=== PATIENT | female | born 1990 | race Caucasian/White ===

== ENCOUNTER 2017-09-21 20:47 | Emergency (ER) | payer BC ==
[~2017-09-21] VITALS: Ht 180.3 cm; Wt 90.9 kg
[~2017-09-21 20:47] MED LIST: AMOXICILLIN 8751 TAB PO; BCP TD; CEPHALEXIN500 M1 PO; LEVAQUIN 5500 MG/TA1 PO; MICROGESTIN 1/21 TAB PO; PREDNISONE20 MG PO; PROAIR HFA0.09 MG/AC IH; SINGULAIR 110 MG/TAB PO; ULTRAM50 MG PO
[2017-09-21 20:54] VITALS: BP 189/81; TEMP 99
[2017-09-21] MEDS ORDERED: ENSKYCE 0.15 MG1 TAB (20:58)
[2017-09-21] MEDS ORDERED: BENADRYL25 M2 PO (21:08)
[2017-09-21] MEDS ORDERED: PEPCID 20MG TAB20 MG PO (22:22)
[2017-09-21] MEDS ORDERED: PREDNISONE20 MG PO (22:22)
[2017-09-21 22:50] VITALS: PULSE 87
== END 2017-09-21 22:53 | disposition home or self-care (01) ==
LOC: COL.ER 20:47
DX: J39.2 Other diseases of pharynx (principal)
CPT/HCPCS: J7512

== ENCOUNTER 2018-03-15 12:47 | Emergency (ER) | payer BC ==
[~2018-03-15] VITALS: Ht 180.3 cm; Wt 93.5 kg
[~2018-03-15 12:47] MED LIST changes: +BENADRYL25 M2 PO; +ENSKYCE 0.15 MG1 TAB; +PEPCID 20MG TAB20 MG PO
[2018-03-15 12:55] VITALS: TEMP 99.4
[2018-03-15 13:39] LABS: BASO # 0.1 (0.0-0.2); BASO % 0.9 % (0.0-2.0); EOS # 0.2 (0.0-0.7); GRAN % 58.2 % (42.2-75.2); HEMATOCRIT 43.1 % (37.0-47.0); HEMOGLOBIN 15.6 g/dl (12.5-16.0); LYMPH # 3.2 (1.2-3.4); LYMPH % 31.3 % (20.0-51.0); MEAN CELL VOLUME 83 fl (80.0-100.0); MEAN CORPUSCULAR HEMOGLOBIN 30 pg (27.0-31.0); MEAN CORPUSCULAR HGB CONC 36 g/dl (33.0-37.0); MONO # 0.8 (0.1-0.6); MONO % 7.5 % (1.7-9.3); PLATELET COUNT 374 K/mm3 (130-400); REDCELL DISTRIBUTION WIDTH-CV 11.8 % (11.5-14.5)
[2018-03-15 13:44] LABS: ALBUMIN 4.3 gm/dL (3.5-5.0); BILIRUBIN,TOTAL 0.6 mg/dL (0.0-1.0); C-REACTIVE PROTEIN 1.7 mg/dL (0.0-0.9); CALCIUM 9.7 mg/dL (8.4-10.2); CREATININE, serum 0.77 mg/dL (0.52-1.25); POTASSIUM 3.7 mmol/L (3.4-5.0); TOTAL PROTEIN 7.6 gm/dL (6.4-8.2)
[2018-03-15 14:55] LABS: COLLECTION METHOD CLEAN CATCH
[2018-03-15 15:09] LABS: PH 6 (5-8); URINE APPEARANCE Clear; URINE BACTERIA Rare /hpf; URINE BILIRUBIN Negative (NEGATIVE); URINE BLOOD Negative (NEGATIVE); URINE COLOR Yellow; URINE GLUCOSE Negative (NEGATIVE); URINE KETONE Negative (NEGATIVE); URINE LEUKOCYTE ESTERASE 2+ (NEGATIVE); URINE NITRATE Negative (NEGATIVE); URINE PROTEIN(semi-quant) Negative (NEGATIVE); URINE RBC 0-2 /hpf; URINE UROBILINOGEN Negative (NEGATIVE)
[2018-03-15] MEDS ORDERED: CEPHALEXIN500 M1 PO (15:23)
[2018-03-15] MEDS ORDERED: PREDNISONE20 MG PO (15:23)
[2018-03-15 18:32] VITALS: BP 118/71; PULSE 85
== END 2018-03-15 18:34 | disposition home or self-care (01) ==
LOC: COL.ER 12:47
PROVIDERS: Emergency Medicine; Physician Assistant
DX: T50.905A Adverse effect of unspecified drugs, medicaments and biological substances, initial encounter (principal); N39.0 Urinary tract infection, site not specified
CPT/HCPCS: J1200; J2060; J7030

== ENCOUNTER 2018-05-09 08:16 | Emergency (ER) | payer BC ==
[~2018-05-09] VITALS: Ht 180.3 cm; Wt 95.5 kg
[2018-05-09 08:20] VITALS: TEMP 98.1
[2018-05-09] MEDS ORDERED: PROBIOTIC FORMU1 CAP PO (08:34)
[2018-05-09] MEDS ORDERED: PREDNISONE20 MG PO (09:24)
[2018-05-09 09:29] VITALS: BP 126/76; PULSE 86
== END 2018-05-09 09:30 | disposition home or self-care (01) ==
LOC: COL.ER 08:16
DX: R20.2 Paresthesia of skin (principal); T78.1XXA Other adverse food reactions, not elsewhere classified, initial encounter; J45.909 Unspecified asthma, uncomplicated; Z98.890 Other specified postprocedural states; Z88.1 Allergy status to other antibiotic agents
CPT/HCPCS: J7512

== ENCOUNTER 2021-09-15 14:30 | Emergency (ER) | payer BC ==
[~2021-09-15] VITALS: Ht 180.3 cm; Wt 90.9 kg
[~2021-09-15 14:30] MED LIST changes: +PROBIOTIC FORMU1 CAP PO
[2021-09-15 15:55] LABS: COLLECTION METHOD CLEAN CATCH
[2021-09-15 16:00] LABS: BASO # 0.1 K/mm3 (0.0-0.2); BASO % 0.5 % (0.0-2.0); EOS # 0.1 K/mm3 (0.0-0.7); EOS % 0.8 % (0.0-4.0); GRAN # 14.1 K/mm3 (1.4-6.5); GRAN % 82.4 % (42.2-75.2); HEMATOCRIT 42.6 % (37.0-47.0); HEMOGLOBIN 15.1 g/dl (12.5-16.0); LYMPH # 1.8 K/mm3 (1.2-3.4); LYMPH % 10.7 % (20.0-51.0); MEAN CELL VOLUME 84 fl (80.0-100.0); MEAN CORPUSCULAR HEMOGLOBIN 30 pg (27-31); MEAN CORPUSCULAR HGB CONC 35 g/dl (33.0-37.0); MEAN PLATELET VOLUME 9.6 fl (7.4-10.4); MONO # 0.9 K/mm3 (0.1-0.6); MONO % 5.2 % (1.7-9.3); PLATELET COUNT 392 K/mm3 (130-400); RED BLOOD COUNT 5.05 M/mm3 (4.10-5.30); REDCELL DISTRIBUTION WIDTH-CV 12.3 % (11.5-14.5)
[2021-09-15 16:17] LABS: PH 5 (5-8); SQUAMOUS EPITHELIAL 0-2 /hpf (0-10); URINE APPEARANCE Hazy (CLEAR/HAZY); URINE BACTERIA None Seen /hpf (NONE SEEN); URINE BILIRUBIN Negative (NEGATIVE); URINE BLOOD 2+ (NEGATIVE); URINE COLOR Yellow (YELLOW); URINE GLUCOSE Negative (NEGATIVE); URINE KETONE Negative (NEGATIVE); URINE LEUKOCYTE ESTERASE 1+ (NEGATIVE); URINE NITRATE Negative (NEGATIVE); URINE PROTEIN(semi-quant) Negative (NEGATIVE); URINE UROBILINOGEN Negative (NEGATIVE)
[2021-09-15 16:18] LABS: ALBUMIN 4.2 gm/dL (3.5-5.0); BILIRUBIN,TOTAL 0.5 mg/dL (0.2-1.2); CALCIUM 9.8 mg/dL (8.4-10.2); CREATININE, serum 0.92 mg/dL (0.57-1.11); POTASSIUM 4.3 mmol/L (3.5-4.5); TOTAL PROTEIN 7.5 gm/dL (6.2-8.1)
[2021-09-15 16:31] LABS: TRICYCLIC ANTIDEPRESS URINE NEGATIVE
[2021-09-15] MEDS ORDERED: ZOFRAN ODT4 MG PO (17:07)
[2021-09-15] MEDS ORDERED: CEFTIN500 MG PO (17:07)
[2021-09-15 18:13] VITALS: BP 128/70; PULSE 81; TEMP 98.2
== END 2021-09-15 17:40 | disposition home or self-care (01) ==
LOC: COL.ER 14:30
PROVIDERS: Physician Assistant
DX: F07.81 Postconcussional syndrome (principal); N39.0 Urinary tract infection, site not specified; Z20.822 Contact with and (suspected) exposure to COVID-19; Z88.1 Allergy status to other antibiotic agents
CPT/HCPCS: J0696; J0780; J7030

== ENCOUNTER 2021-12-29 21:38 | Emergency (ER) | payer BC ==
[~2021-12-29] VITALS: Ht 177.8 cm; Wt 102.3 kg
[~2021-12-29 21:38] MED LIST changes: +CEFTIN500 MG PO; +ZOFRAN ODT4 MG PO
[2021-12-29] MEDS ORDERED: KLONOPIN 0.5MG0.5 MG (21:52)
[2021-12-29] MEDS ORDERED: MOBIC 7.5MG7.5 MG (21:53)
[2021-12-29] MEDS ORDERED: PRISTIQ 50 MG T50 MG (21:53)
[2021-12-29 22:35] LABS: BASO # 0.1 K/mm3 (0.0-0.2); BASO % 0.9 % (0.0-2.0); EOS # 0.3 K/mm3 (0.0-0.7); EOS % 2.9 % (0.0-4.0); GRAN # 6.4 K/mm3 (1.4-6.5); GRAN % 58.9 % (42.2-75.2); HEMOGLOBIN 14.6 g/dl (12.5-16.0); LYMPH # 3.2 K/mm3 (1.2-3.4); LYMPH % 29.7 % (20.0-51.0); MEAN CELL VOLUME 83 fl (80.0-100.0); MEAN CORPUSCULAR HEMOGLOBIN 29 pg (27-31); MEAN CORPUSCULAR HGB CONC 36 g/dl (33.0-37.0); MEAN PLATELET VOLUME 9.7 fl (7.4-10.4); MONO # 0.8 K/mm3 (0.1-0.6); MONO % 7.3 % (1.7-9.3); PLATELET COUNT 363 K/mm3 (130-400); RED BLOOD COUNT 4.96 M/mm3 (4.10-5.30)
[2021-12-29 22:42] LABS: ALBUMIN 4.3 gm/dL (3.5-5.0); BILIRUBIN,TOTAL 0.6 mg/dL (0.2-1.2); CALCIUM 9.1 mg/dL (8.4-10.2); CREATININE, serum 0.82 mg/dL (0.57-1.11); POTASSIUM 3.4 mmol/L (3.5-4.5); TOTAL PROTEIN 6.4 gm/dL (6.2-8.1)
[2021-12-30 01:24] VITALS: BP 129/77; PULSE 92; TEMP 97.7
== END 2021-12-30 01:24 | disposition home or self-care (01) ==
LOC: COL.ER 21:38
PROVIDERS: Personal Emergency Response Attendant
DX: R55 Syncope and collapse (principal); R11.10 Vomiting, unspecified
CPT/HCPCS: J1790; J2060; J2405; J7030

== ENCOUNTER 2022-02-01 20:43 | Emergency (ER) | payer BC ==
[~2022-02-01] VITALS: Ht 180.3 cm; Wt 102.3 kg
[~2022-02-01 20:43] MED LIST changes: +KLONOPIN 0.5MG0.5 MG; +MOBIC 7.5MG7.5 MG; +PRISTIQ 50 MG T50 MG
[2022-02-01 20:44] VITALS: TEMP 98.6
[2022-02-01 21:23] LABS: BASO # 0.1 K/mm3 (0.0-0.2); BASO % 0.7 % (0.0-2.0); EOS # 0.5 K/mm3 (0.0-0.7); EOS % 4.1 % (0.0-4.0); GRAN % 60.7 % (42.2-75.2); HEMATOCRIT 37.8 % (37.0-47.0); HEMOGLOBIN 13.7 g/dl (12.5-16.0); LYMPH # 3.2 K/mm3 (1.2-3.4); LYMPH % 27.7 % (20.0-51.0); MEAN CELL VOLUME 83 fl (80.0-100.0); MEAN CORPUSCULAR HEMOGLOBIN 30 pg (27-31); MEAN CORPUSCULAR HGB CONC 36 g/dl (33.0-37.0); MEAN PLATELET VOLUME 10.5 fl (7.4-10.4); MONO # 0.7 K/mm3 (0.1-0.6); MONO % 6.4 % (1.7-9.3); PLATELET COUNT 307 K/mm3 (130-400); RED BLOOD COUNT 4.57 M/mm3 (4.10-5.30)
[2022-02-01 21:39] LABS: ALANINE AMINOTRANSFERASE 62 U/L (0-55); ALBUMIN 3.9 gm/dL (3.5-5.0); ALKALINE PHOSPHATASE 89 U/L (40-150); ANION GAP 14 mmol/L (7-16); AST,SGOT 53 U/L (5-34); BILIRUBIN,TOTAL 0.4 mg/dL (0.2-1.2); BLOOD UREA NITROGEN 8 mg/dL (7-19); CALCIUM 8.8 mg/dL (8.4-10.2); CARBON DIOXIDE 20 mmol/L (22-29); CHLORIDE 108 mmol/L (98-107); CREATININE, serum 0.81 mg/dL (0.57-1.11); GLUCOSE 107 mg/dL (70-99); POTASSIUM 3.8 mmol/L (3.5-4.5); SODIUM 142 mmol/L (136-145); TOTAL PROTEIN 6.8 gm/dL (6.2-8.1)
[2022-02-01 21:40] LABS: ALCOHOL(ethanol),MEDICAL < 10 mg/dL (0-10)
[2022-02-01 22:05] LABS: TRICYCLIC ANTIDEPRESS URINE NEGATIVE
[2022-02-01 22:23] VITALS: BP 122/79; PULSE 93
== END 2022-02-01 22:23 | disposition home or self-care (01) ==
LOC: COL.ER 20:43
PROVIDERS: Emergency Medicine Emergency Medical Services
DX: F07.81 Postconcussional syndrome (principal); D72.829 Elevated white blood cell count, unspecified; R74.01 Elevation of levels of liver transaminase levels
CPT/HCPCS: J1885; J7030

== ENCOUNTER 2022-02-06 15:53 | Emergency (ER) | payer BC ==
[~2022-02-06] VITALS: Ht 180.3 cm; Wt 106.8 kg
[2022-02-06 16:28] LABS: BASO # 0.1 K/mm3 (0.0-0.2); BASO % 0.7 % (0.0-2.0); EOS # 0.1 K/mm3 (0.0-0.7); EOS % 0.4 % (0.0-4.0); GRAN # 10.7 K/mm3 (1.4-6.5); GRAN % 79.9 % (42.2-75.2); HEMATOCRIT 39.6 % (37.0-47.0); HEMOGLOBIN 14.4 g/dl (12.5-16.0); LYMPH # 1.9 K/mm3 (1.2-3.4); LYMPH % 14.4 % (20.0-51.0); MEAN CELL VOLUME 83 fl (80.0-100.0); MEAN CORPUSCULAR HEMOGLOBIN 30 pg (27-31); MEAN CORPUSCULAR HGB CONC 36 g/dl (33.0-37.0); MONO # 0.5 K/mm3 (0.1-0.6); PLATELET COUNT 339 K/mm3 (130-400); RED BLOOD COUNT 4.76 M/mm3 (4.10-5.30); REDCELL DISTRIBUTION WIDTH-CV 12.2 % (11.5-14.5)
[2022-02-06 16:44] LABS: ALBUMIN 4.1 gm/dL (3.5-5.0); BILIRUBIN,TOTAL 0.5 mg/dL (0.2-1.2); C-REACTIVE PROTEIN 0.28 mg/dL (0.00-0.50); CALCIUM 9.6 mg/dL (8.4-10.2); CREATININE, serum 0.82 mg/dL (0.57-1.11); POTASSIUM 3.7 mmol/L (3.5-4.5); TOTAL PROTEIN 7.1 gm/dL (6.2-8.1)
[2022-02-06 17:03] LABS: PROLACTIN 27.3 ng/mL (5.18-26.53)
[2022-02-06 17:37] LABS: COLLECTION METHOD CLEAN CATCH
[2022-02-06] MEDS ORDERED: KEPPRA 500MG500 MG PO (18:02)
[2022-02-06 18:05] LABS: PH 9 (5-8); SQUAMOUS EPITHELIAL 0-2 /hpf (0-10); URINE APPEARANCE Hazy (CLEAR/HAZY); URINE BACTERIA Rare /hpf (NONE SEEN); URINE BILIRUBIN Negative (NEGATIVE); URINE BLOOD 3+ (NEGATIVE); URINE COLOR Yellow (YELLOW); URINE GLUCOSE Negative (NEGATIVE); URINE KETONE Negative (NEGATIVE); URINE LEUKOCYTE ESTERASE 1+ (NEGATIVE); URINE NITRATE Negative (NEGATIVE); URINE PROTEIN(semi-quant) Negative (NEGATIVE); URINE RBC >50 /hpf (0-2); URINE UROBILINOGEN Negative (NEGATIVE)
[2022-02-06 19:02] VITALS: BP 131/90; PULSE 76
== END 2022-02-06 19:29 | disposition home or self-care (01) ==
LOC: COL.ER 15:53
PROVIDERS: Family Medicine
DX: R41.82 Altered mental status, unspecified (principal); R56.9 Unspecified convulsions; E22.1 Hyperprolactinemia
CPT/HCPCS: J1790; J1953; J7120

== ENCOUNTER 2022-02-24 09:55 | Outpatient (CLI) | payer BC ==
[~2022-02-24] VITALS: Ht 180.3 cm; Wt 102.5 kg
[~2022-02-24 09:55] MED LIST changes: +KEPPRA 500MG500 MG PO; -KLONOPIN 0.5MG0.5 MG; +KLONOPIN 0.5MG0.5 MG PO; -MOBIC 7.5MG7.5 MG; +MOBIC 7.5MG7.5 MG PO; -PRISTIQ 50 MG T50 MG; +PRISTIQ 50 MG T50 MG PO
[2022-02-24 10:28] VITALS: BP 130/91; PULSE 97; TEMP 98.3
[2022-02-24] MEDS ORDERED: PREDNISONE20 MG PO (10:47)
[2022-02-24] MEDS ORDERED: 00186-0372-20 IH (10:48)
[2022-02-24] MEDS ORDERED: ALLEGRA 180MG180 MG PO (10:49)
[2022-02-24] MEDS ORDERED: TYLENOL 500MG500 MG PO (10:50)
[2022-02-24] MEDS ORDERED: BENADRYL E2.5 MG/1 M PO (10:51)
[2022-02-24] MEDS ORDERED: FLONASEALLERGY NS (10:52)
[2022-02-24] MEDS ORDERED: TUMS500 MG PO (10:52)
[2022-02-24] MEDS ORDERED: BETAMETHASONE D15 G1 TP (10:53)
[2022-02-24] MEDS ORDERED: CLOBEX 118 ML118 M1 TP (10:54)
[2022-02-24] MEDS ORDERED: TRIAMCINOLONE A15 G3 TP (10:54)
[2022-02-24 12:56] VITALS: BP 125/83; PULSE 85
[2022-02-24 13:15] VITALS: BP 116/77; PULSE 85
[2022-02-24] MEDS ORDERED: TOPROL XL 25MG25 MG PO (13:28)
--- NOTE | 2022-02-24 13:30 | NUR ---
Pt assisted to restroom by wheelchair. Steady with transfers and while in restroom. States she is feeling improved following TTT after being able to lay flat. She's sipping fluids without issue.
--- NOTE | 2022-02-24 13:48 | NUR ---
DC instructions reviewed with pt and mother, both express understanding. Pt assisted out by wheelchair to mom's car with belongings. She remains A&O, continued headache but denies other complaints at this time.
== END 2022-02-24 13:50 | disposition home or self-care (01) ==
LOC: COL.CAR 09:55
DX: R55 Syncope and collapse (principal)

== ENCOUNTER 2022-04-24 07:15 | Outpatient (CLI) | payer BC ==
[~2022-04-24] VITALS: Ht 180.3 cm; Wt 109.5 kg
[~2022-04-24 07:15] MED LIST changes: +00186-0372-20 IH; +ALLEGRA 180MG180 MG PO; +BENADRYL E2.5 MG/1 M PO; +BETAMETHASONE D15 G1 TP; +CLOBEX 118 ML118 M1 TP; +FLONASEALLERGY NS; -MOBIC 7.5MG7.5 MG PO; +TOPROL XL 25MG25 MG PO; +TRIAMCINOLONE A15 G3 TP; +TUMS500 MG PO; +TYLENOL 500MG500 MG PO
--- NOTE | 2022-04-24 08:15 | NUR ---
Pt to procedure.
[2022-04-24 08:22] VITALS: BP 130/84; PULSE 93; TEMP 98.7
[2022-04-24] MEDS ORDERED: KLONOPIN 0.5MG0.5 MG PO (08:25)
[2022-04-24] MEDS ORDERED: KEPPRA 500MG500 MG PO (08:27)
[2022-04-24] MEDS ORDERED: ZOFRAN 4MG T4 MG/TAB PO (08:28)
[2022-04-24] MEDS ORDERED: MOBIC 7.5MG7.5 MG PO (08:29)
[2022-04-24] MEDS ORDERED: TOPROL XL 25MG25 MG PO (08:34)
[2022-04-24] MEDS ORDERED: AMITRIPTYLINE H10 M1 PO (08:35)
[2022-04-24 09:51] VITALS: BP 135/86; PULSE 87
[2022-04-24 10:00] VITALS: BP 129/82; PULSE 87
[2022-04-24 10:15] VITALS: BP 127/84; PULSE 90
[2022-04-24 10:30] VITALS: BP 114/79; PULSE 84
[2022-04-24] MEDS ORDERED: TOPROL XL 50MG50 MG PO (10:44)
[2022-04-24 10:45] VITALS: BP 125/85; PULSE 86
--- NOTE | 2022-04-24 11:43 | NUR ---
Discharge instructions given to pt.Pt verbalization understanding.Pt escorted out via wheelchair by Keith.
== END 2022-04-24 11:47 ==
LOC: COL.CAR 07:15
DX: R55 Syncope and collapse (principal)

== ENCOUNTER 2022-05-02 20:41 | Emergency (ER) | payer BC ==
[~2022-05-02] VITALS: Ht 180.3 cm; Wt 109.1 kg
[~2022-05-02 20:41] MED LIST changes: +AMITRIPTYLINE H10 M1 PO; +MOBIC 7.5MG7.5 MG PO; +TOPROL XL 50MG50 MG PO; +ZOFRAN 4MG T4 MG/TAB PO
[2022-05-02 21:29] VITALS: TEMP 98
[2022-05-02 21:43] LABS: BASO # 0.1 K/mm3 (0.0-0.2); EOS # 0.4 K/mm3 (0.0-0.7); EOS % 3.6 % (0.0-4.0); GRAN # 6.7 K/mm3 (1.4-6.5); GRAN % 62.1 % (42.2-75.2); HEMATOCRIT 38.3 % (37.0-47.0); HEMOGLOBIN 13.8 g/dl (12.5-16.0); LYMPH # 2.7 K/mm3 (1.2-3.4); LYMPH % 25.4 % (20.0-51.0); MEAN CELL VOLUME 85 fl (80.0-100.0); MEAN CORPUSCULAR HEMOGLOBIN 31 pg (27-31); MEAN CORPUSCULAR HGB CONC 36 g/dl (33.0-37.0); MEAN PLATELET VOLUME 9.6 fl (7.4-10.4); MONO # 0.8 K/mm3 (0.1-0.6); MONO % 7.6 % (1.7-9.3); PLATELET COUNT 325 K/mm3 (130-400); RED BLOOD COUNT 4.53 M/mm3 (4.10-5.30); REDCELL DISTRIBUTION WIDTH-CV 12.3 % (11.5-14.5)
[2022-05-02 21:58] LABS: ALANINE AMINOTRANSFERASE 78 U/L (0-55); ALKALINE PHOSPHATASE 91 U/L (40-150); ANION GAP 11 mmol/L (7-16); AST,SGOT 68 U/L (5-34); BILIRUBIN,TOTAL 0.5 mg/dL (0.2-1.2); BLOOD UREA NITROGEN 8 mg/dL (7-19); CALCIUM 9.3 mg/dL (8.4-10.2); CARBON DIOXIDE 23 mmol/L (22-29); CHLORIDE 108 mmol/L (98-107); CREATININE, serum 0.77 mg/dL (0.57-1.11); GLUCOSE 99 mg/dL (70-99); POTASSIUM 3.7 mmol/L (3.5-4.5); SODIUM 142 mmol/L (136-145); TOTAL PROTEIN 6.7 gm/dL (6.2-8.1)
[2022-05-02 22:05] LABS: TROPONIN-I < 0.010 ng/mL (0.00-0.033)
[2022-05-02 22:11] LABS: ALBUMIN 3.9 gm/dL (3.5-5.0)
[2022-05-02 22:25] LABS: COLLECTION METHOD CLEAN CATCH
[2022-05-02 23:12] LABS: MUCOUS Present (NOT PRESENT); URINE BACTERIA None Seen /hpf (NONE SEEN); URINE RBC 0-2 /hpf (0-2)
[2022-05-02 23:14] LABS: URINE APPEARANCE Clear (CLEAR/HAZY); URINE BLOOD Negative (NEGATIVE); URINE COLOR Yellow (YELLOW); URINE GLUCOSE Negative (NEGATIVE); URINE KETONE Negative (NEGATIVE); URINE NITRATE Negative (NEGATIVE); URINE PROTEIN(semi-quant) Negative (NEGATIVE); URINE UROBILINOGEN 0.2 E.U/dL (0.2-1.0)
[2022-05-03 00:15] VITALS: BP 112/78; PULSE 79
== END 2022-05-03 00:15 | disposition home or self-care (01) ==
LOC: COL.ER 20:41
PROVIDERS: Emergency Medicine
DX: R55 Syncope and collapse (principal)
CPT/HCPCS: J1200; J1885; J2765; J3475; J7030

== ENCOUNTER 2022-05-05 20:36 | Emergency (ER) | payer BC ==
[~2022-05-05] VITALS: Ht 180.3 cm; Wt 109.1 kg
[2022-05-05 20:40] VITALS: TEMP 99.5
[2022-05-05 21:24] LABS: BASO # 0.1 K/mm3 (0.0-0.2); EOS # 0.5 K/mm3 (0.0-0.7); EOS % 5.1 % (0.0-4.0); GRAN # 5.9 K/mm3 (1.4-6.5); GRAN % 60.8 % (42.2-75.2); HEMATOCRIT 37.2 % (37.0-47.0); HEMOGLOBIN 13.8 g/dl (12.5-16.0); LYMPH # 2.3 K/mm3 (1.2-3.4); LYMPH % 23.8 % (20.0-51.0); MEAN CELL VOLUME 83 fl (80.0-100.0); MEAN CORPUSCULAR HEMOGLOBIN 31 pg (27-31); MEAN CORPUSCULAR HGB CONC 37 g/dl (33.0-37.0); MEAN PLATELET VOLUME 9.5 fl (7.4-10.4); MONO # 0.9 K/mm3 (0.1-0.6); PLATELET COUNT 342 K/mm3 (130-400); RED BLOOD COUNT 4.49 M/mm3 (4.10-5.30); REDCELL DISTRIBUTION WIDTH-CV 12.1 % (11.5-14.5)
[2022-05-05 21:37] LABS: COLLECTION METHOD CLEAN CATCH
[2022-05-05 21:45] LABS: ALBUMIN 3.7 gm/dL (3.5-5.0); BILIRUBIN,TOTAL 0.5 mg/dL (0.2-1.2); C-REACTIVE PROTEIN 0.84 mg/dL (0.00-0.50); CALCIUM 9.2 mg/dL (8.4-10.2); CREATININE, serum 0.82 mg/dL (0.57-1.11); POTASSIUM 3.6 mmol/L (3.5-4.5); TOTAL PROTEIN 6.4 gm/dL (6.2-8.1)
[2022-05-05 21:46] LABS: SQUAMOUS EPITHELIAL 0-2 /hpf (0-10); URINE BACTERIA None Seen /hpf (NONE SEEN); URINE RBC 0-2 /hpf (0-2)
[2022-05-05 21:52] LABS: URINE APPEARANCE Clear (CLEAR/HAZY); URINE COLOR Yellow (YELLOW)
[2022-05-05 21:54] LABS: URINE GLUCOSE Negative (NEGATIVE); URINE KETONE Negative (NEGATIVE); URINE NITRATE Negative (NEGATIVE); URINE PROTEIN(semi-quant) Negative (NEGATIVE); URINE UROBILINOGEN 0.2 E.U/dL (0.2-1.0)
[2022-05-05 21:55] LABS: URINE BLOOD TRACE-INTACT (NEGATIVE)
[2022-05-05 22:27] VITALS: BP 132/88; PULSE 76
== END 2022-05-05 22:30 | disposition home or self-care (01) ==
LOC: COL.ER 20:36
PROVIDERS: Family Medicine
DX: R55 Syncope and collapse (principal); Z28.310 Unvaccinated for COVID-19
CPT/HCPCS: J1790; J1885; J2405; J7120

== ENCOUNTER → 2022-05-16 | Outpatient (CLI) | payer BC | LOC: COL.PUL 07:38 | DX: R05.3 Chronic cough (principal) ==